=== PATIENT | female | born 1970 | race Caucasian/White ===

== ENCOUNTER → 2019-08-15 | Outpatient (CLI) | payer BC ==
--- NOTE | 2019-08-15 15:35 | P.GSHP ---
History of Present Illness H&P Date: 08/15/19 Chief Complaint: breast lump right Belinda is a 49 year old white female seen for Dr. Cook as the patient thought she felt a lump in her right breast two months ago. The nodularity was in the lower outer quadrant. It was not painful. It was less than an inch in s ize. In the past in 2013 she had the right breast biopsy. This was for an ultrasound abnormality she had an ultrasound-guided biopsy after which the lesion was removed. A second lesion was seen and aspirated. Both were benign. This appears to be in the same area where she had the biopsy done in the past. She does not feel anything at that site at this time. Had bilateral mammogram and ultrasound of the right side and [id number] at [facility]. The patient states she was told there was nothing of concern on the radiographs. However she presents for breast evaluation to be sure that that which she felt is not worrisome. She does not feel any lumps masses or nodules in her breasts at this time. She is not complaining of any nipple discharge or skin changes. She is not complaining of any trauma or infection in her breast. He did have a right breast biopsy approximately 6 years ago and this was benign. Report of bilateral mammogram was obtained this was done 07/25/2019 this was a BIRADS is 0 incomplete recommending ultrasound of the right breast no suspicious microcalcifications however were noted in either breast. The ultrasound of the right breast was negative for any cystic or solid mass. It showed only dense breast tissue. Caffeine: Coca-Cola several a day Nicotine: Negative Theophylline: Occasional Hormones: Negative stopped control pills approximately 2 months ago Family history: no history of cancer Hormonal history: Menarche: 10 G0 Menopause: Patient is still having periods of the day are regular control pills: Negative at this time, used them for 10 years; just stopped several months ago Hormones: Negative Surgical history: 1. Excisional right breast biopsy February 2013 Medical history: Negative Social history: Smoke: Negative Alcohol: Negative Drugs: Negative - Constitutional Constitutional: Denies chills, Denies fever - EENT Eyes: denies blurred vision, denies pain Ears: deny: decreased hearing, tinnitus Ears, nose, mouth and throat: Denies headache, Denies sore throat - Breasts Breasts: bilateral: as per HPI - Cardiovascular Cardiovascular: Denies chest pain, Denies shortness of breath - Gastrointestinal Gastrointestinal: Denies abdominal pain, Denies diarrhea, Denies nausea, Denies vomiting - Genitourinary (Female) Genitourinary: Denies dysuria, Denies hematuria - Menstruation Menstruation: Reports period normal - Musculoskeletal Musculoskeletal: Denies myalgias - Integumentary Integumentary: Denies pruritus, Denies rash - Neurological Neurological: Denies numbness, Denies weakness - Endocrine Endocrine: Denies fatigue, Denies weight change - Hematologic/Lymphatic Comment: none - Allergic/Immunologic Allergic/Immunologic: Reports seasonal allergies Medications and Allergies Home Medications Medication Instructions Recorded Confirmed Type Calcium Carbonate/Vitamin D3 1 each PO HS 08/15/19 08/15/19 History [Calcium 500-Vit D3 600 Tablet] Multivitamins, Thera [Multivitamin 1 tab PO HS 08/15/19 08/15/19 History (formulary)] Allergies Allergy/AdvReac Type Severity Reaction Status Date / Time No Known Allergies Allergy Unverified 08/15/19 15:14 Surgical - Exam BMI 18.7 - General well developed, well nourished, no distress - Eyes normal ocular movement - ENT no hearing loss, no congestion - Neck no masses, trachea midline - Respiratory normal respiratory effort, clear to auscultation - Cardiovascular Rhythm: regular Heart Sounds: normal: S1, S2 - Abdomen Abdomen: soft, non tender, no guarding, no rigid, no rebound - Integumentary normal turgor - Neurologic no disoriented, no combative - Musculoskeletal normal gait, normal posture - Psychiatric oriented to time, oriented to person, oriented to place, speech is normal, memory intact Breast Exam: Bra 32A inspection: Well-healed scar right breast from prior biopsy, ptosis grade 1 bilateral Palpation: Right breast: Multi-positional exam no dominant masses or nodules of concern, fibrocystic changes Right axilla: No adenopathy of concern/mild shotty adenopathy non-worrisome Left breast: Multiple positional exam fibrocystic changes no dominant masses or nodules of concern Left axilla: No adenopathy of concern Results Mammogram and ultrasound results reviewed Assessment and Plan Assessment: Impression: 1. Patient felt area of nodularity right breast which resolved 2. Normal mammogram and ultrasound of the right breast in July 2019 3. Patient is perimenopausal based on age of 49 although she is still having normal periods Plan: 1. Bilateral mammogram in 1 year with patient exam at that time 2. Patient to call if she notes anything of concern in her breast sooner 3. We have talked about fibrocystic breast disease and the fact that the patient drinks Coca-Cola and she will consider modifying this lifestyle choices 4. Patient is not using hormones at this time and we will not use them in the near future CC: Dr. Cook encounter 45 minutes, > 50% of time spent in planning and counselling
[2019-08-16 10:17] VITALS: BP 120/79; PULSE 80; RESP 14; TEMP 99
== END | disposition home or self-care (01) ==
LOC: WWCWWP 14:57
PROVIDERS: ATTEND Surgery
DX: Z53.9 Procedure and treatment not carried out, unspecified reason (principal)